=== PATIENT | male | born 1995 | race Two or more races ===

== ENCOUNTER → 2024-12-06 | Outpatient (CLI) | payer BC, SELFPAY ==
--- NOTE | 2024-12-06 16:13 | XR_ITS ---
Examination: Lumbar spine, 5 views Technique: Lumbar spine AP, lateral, coned lateral lower lumbar spine, bilateral obliques 5 views Exam date and time: December 06, 2024, 1627 hrs. Indications: Low back pain beginning one month ago. Findings: Adequate alignment lumbar vertebral bodies No lumbar fracture Mild disc narrowing posteriorly L5-S1 No spondylolisthesis Impression: Early degenerative disc disease L5-S1
== END | disposition home or self-care (01) ==
LOC: CDIM 16:11
PROVIDERS: Referring Provider Nurse Practitioner Family; Visit Provider Nurse Practitioner Family
DX: M51.370 Other intervertebral disc degeneration, lumbosacral region with discogenic back pain only (principal)
CPT/HCPCS: 72110